=== PATIENT | male | born 1955 | race Two or more races ===

== ENCOUNTER 2017-09-05 05:44 | Day surgery (SDC) | payer BC ==
[2017-09-04 15:28] LABS: HEMATOCRIT 39.7 % (42.0-54.0); HEMOGLOBIN 13.4 g/dL (13.5-17.5); MCHC 33.8 g/dL (31.0-37.0); MCV 88.8 fL (80.0-100.0); MEAN PLATELET VOLUME 9.3 fL (7.4-10.4); RBC 4.47 10x6/uL (4.20-6.10); RDW 13.1 % (11.5-14.5); WBC 7.6 10x3/uL (4.8-10.8)
[~2017-09-05] VITALS: Ht 170.2 cm; Wt 73.9 kg
[2017-09-05] MEDS ORDERED: AZOR 10-40 MG T1 TAB PO (08:24)
[2017-09-05] MEDS ORDERED: BACTRIM DS TABL1 TAB PO (08:25)
[2017-09-05] MEDS ORDERED: CRESTOR20 MG PO (08:25)
[2017-09-05] MEDS ORDERED: FLOMAX0.4 MG PO (08:25)
[2017-09-05 08:28] VITALS: BP 126/67; Ht 170.2 cm; Wt 73.9 kg
--- NOTE | 2017-09-06 08:04 | OP ---
PATIENT NAME: GRUPO DUNCAN MEDICAL RECORD: [id number] :57 LOCATION:.[facility] ADMISSION DATE: SURGEON: DEEJAY CONCEPCION MD DATE OF OPERATION: 09/05/2017 DATE OF SURGERY: 09/05/2017 SURGEON: Deejay Concepcion MD ANESTHESIA: MAC by Dhruv Le CRNA PREOPERATIVE DIAGNOSIS: Elevated PSA 4.03. PROCEDURE: Transrectal ultrasound and prostate biopsy. FINDINGS: A 46-gram prostate. Hypoechoic areas in the right mid prostate and left mid prostate. SPECIMENS: Prostate biopsy cores. ESTIMATED BLOOD LOSS: Minimal. 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 He is working for a [employer] located in [place] and he is here in the [facility] on a 5-year contract. He has a family history of prostate cancer in his father. He has been monitoring his PSA for the past 10 years and now it has crept up to 4.03. He has some obstructive voiding symptoms and he was started on tamsulosin by his urologist in [facility]. He had a prostate MRI in [facility] and the prostate was measured at 62 grams in size. They said that his transition zone showed signs of chronic prostatitis. He was recommended in [facility] to have a prostate biopsy, but he left for the [facility] soon afterwards. He comes today to have this prostate biopsy done here. He is not allergic to any medications. 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 He has already been taking Bactrim prophylaxis. He also had an enema last night to clean out the rectum. DESCRIPTION OF PROCEDURE: The patient was given IV sedation. He was placed in the dorsal lithotomy position. The transrectal ultrasound probe was placed and prostate size measurements were obtained. The prostate size measurement that we have is different from the measurement from the MRI in [facility], but that is because of different mathematical models are used to estimate the size and volume. Hypoechoic areas were noted in the mid portion of the right prostate surrounded by quite hyperechoic areas as border. On the left side, there was a rather dull hypoechoic area without any surrounding bright border. We did sextant biopsies with at least 3 cores from the sextant. I did an extra core through the hypoechoic area on the right just to be sure that I got it. Once all the biopsies were obtained, they were sent to pathology in formalin. The patient was awakened and brought to the recovery room. I will see him in followup in 1-2 weeks' time to review the pathology with him. TRANSINT:[id number] Voice Confirmation ID: [id number] DOCUMENT ID: [id number] OPERATIVE REPORT [id number] GRUPO DUNCAN ROBERT S MD at 0804 CC: [id number] DICTATION DATE: 09/05/17 0939 ORGANIC EXTRACTIONS TECHNICIAN: 09/05/17 1151 [facility] 09/05/17 [id number] [place] [address]
== END 2017-09-05 11:10 | disposition home or self-care (01) ==
LOC: D.OPS 05:44 → D.PAN 08:30 → D.OPS 08:30
PROVIDERS: Anesthesiology
DX: R97.20 Elevated prostate specific antigen [PSA] (principal); I10 Essential (primary) hypertension; Z01.812 Encounter for preprocedural laboratory examination